=== PATIENT | male | born 1990 | race Caucasian/White ===

== ENCOUNTER 2023-04-19 06:30 | Day surgery (SDC) | payer BC, SELFPAY ==
[2023-04-19] VITALS (7 sets, daily range): BP systolic 115–168; BP diastolic 61–88; BMI 22.5
== END 2023-04-19 15:18 | disposition home or self-care (01) ==
LOC: SDS 06:30
PROVIDERS: ATTENDING PHYSICIAN Specialist
DX: L72.0 Epidermal cyst (principal); L98.9 Disorder of the skin and subcutaneous tissue, unspecified
CPT/HCPCS: 11421; 88304; 88305

== ENCOUNTER 2023-08-19 15:48 | Emergency (ER) | payer BC, SELFPAY ==
[2023-08-19 15:50] VITALS: BP 170/95
--- NOTE | 2023-08-19 16:40 | ED.GENMED ---
History of Present Illness
General
Chief Complaint: Headache
Source: patient
Time Seen by Provider: 08/19/23 16:14
Travel History
Have you had any contact with someone who has COVID-19?: No
Do you have any symptoms of coronavirus? Fever > 100 degrees, chills, cough, shortness of breath, sore throat, loss of taste or smell, muscle aches, or headache?: No
History of Present Illness
History of Present Illness:
33-year-old male presenting to the emergency department to be evaluated for head pressure that has been ongoing for 1 month however today started develop a right-sided headache that developed into a transient loss of his peripheral vision for about
1 hour and this resolved spontaneously and then with a worsening pounding headache. Patient states he has had migraines in the past with similar visual auras but states today seem to be a little bit more severe which is why he decided to come to
the ER for further evaluation. Patient did not take any medications for his headache prior to arrival. Denies any fevers, nausea, vomiting, neck pain or stiffness or any other concerns. 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
the brain from an incidental finding on scan done in 2007. No other concerns.
Past History
Past History
ED Past Medical History: Asthma
ED Past Surgical History: Urological
Social History
Tobacco: Non-smoker
Alcohol: Occasional
Drug: None
Personal: Single
Living: with family
Employment: Employed
Review of Systems
Review of Systems
All Other Systems: ROS reviewed and negative except as documented in HPI and ROS
Phy Exam
Physical Exam
Physical Exam:
GENERAL: Alert , in no apparent distress
EYE: conjunctiva clear, pupils 4mm b/l, EOMI
NECK: Supple, no significant adenopathy.
ENT: o/p clr, mmm.
CARDIAC: Regular rate and rhythm
LUNGS: Clear breath sounds bilaterally, no acute respiratory distress, no wheezes/rales/rhonchi
NEUROLOGICAL: Alert and oriented, Ambulates with steady gait, no dysmetria, no dysarthria or aphasia, no ataxia, 5/5 strength to b/l UE and LE. sensation grossly intact to light touch
SKIN: Warm and dry, skin intact.
MUSCULOSKELETAL: well perfused.
PSYCH: Normal and appropriate interaction.
Scores
Heart Failure Risk
Heart Failure Risk Score: Not Applicable
Heart Score for Chest Pain Patients
STEMI patient?: Not applicable
Withdrawal Assessment of Alcohol
Withdrawal Assessment Completed?: Not applicable
Course
Orders/Labs/Results
Orders:
Orders
08/19/23 15:59
CT Head W/o Iv Contrast Urgent
Comment:
Reason For Exam: visual changes
Vital Signs
Initial and Last Documented VS:
Initial Vital Signs
Temp Pulse Resp BP Pulse Ox
98.7 F 75 16 170/95 99
08/19/23 15:50 08/19/23 15:50 08/19/23 15:50 08/19/23 15:50 08/19/23 15:50
Last Documented Vital Signs
Temp Pulse Resp BP Pulse Ox
98.7 F 85 18 163/83 100
08/19/23 15:50 08/19/23 18:00 08/19/23 18:00 08/19/23 18:00 08/19/23 18:00
MDM/Problems Addressed
Differential Diagnosis Includes:
Atypical migraine, TIA thought to be less likely given patient's age and lack of risk factors as well as the duration that symptoms lasted, malignancy
MDM/Problems Addressed:
33-year-old male presenting emergency department for evaluation of headache with transient visual disturbance that lasted for around 1 hour. Patient still notes a posterior headache but is declining anything for the symptoms. No focal neurologic
deficits. Patient is otherwise well-appearing. CT of the head ordered. Reassessment following.
*Pulse Oximetry
Patient hypoxic: no
*Critical Care Note
Total Time (30-74mins, 75-104mins- exclusive of procedures): Not Applicable
Patient Management
Escalation/DeEscalation of care consider admission/obs:
CT shows already known arachnoid cyst. There is no other evidence for intracranial pathology. Patient continues to decline any medications for headache. At this time he is stable for discharge home. Encourage close follow-up with primary care
provider however I did discuss that if patient continues with migraines he may benefit from follow-up with neurology as an outpatient. Aware precautions to the emergency department.
ED Attending Note
-
Portions of this chart may have been created with voice recognition software.� Occasional wrong word or��sound alike� substitutions may have occurred due to the inherent limitations of voice recognition software.
Discharge Plan
Departure
Patient Disposition: Home (Routine Discharge)
Date of Disposition: 08/19/23
Time of Disposition: 18:56
Patient with high blood pressure during this ER visit?: Yes
Discharge Problem:
Migraine with aura
Instructions: Migraines (DC)
Prescriptions:
No Action
No Current Medications
0
Referrals:
Mario Powers MD [Family Provider] -
Interventions
Interventions:
*Risk Screen - Suicide Last Done: 08/19/23 17:00
*General Assessment Last Done: 08/19/23 17:00
*Neglect/Abuse Screening Last Done: 08/19/23 17:00
ED- Fall Risk Assessment Last Done: 08/19/23 17:00
*ED COVID-19 Vaccine History Last Done: 08/19/23 15:50
*Nursing Disposition Last Done: 08/19/23 19:13
ED- Neurological Assessment Last Done: 08/19/23 17:00
Discharge Date and Time
Discharge Date/Time: 08/19/23 19:16
Print Language: GHANAIAN
[2023-08-19 18:00] VITALS: BP 163/83
== END 2023-08-19 19:16 | disposition home or self-care (01) ==
LOC: EMR 15:48
PROVIDERS: EMERGENCY PHYSICIAN Emergency Medicine; FAMILY PHYSICIAN Internal Medicine
DX: G43.109 Migraine with aura, not intractable, without status migrainosus (principal); R03.0 Elevated blood-pressure reading, without diagnosis of hypertension; G93.0 Cerebral cysts; J45.909 Unspecified asthma, uncomplicated
CPT/HCPCS: 99284; 70450

== ENCOUNTER → 2023-09-21 08:33 | Outpatient (REF) | payer BC, SELFPAY ==
[2023-09-21 09:41] LABS: % Basophils 0.3 % (0-2); % Eosinophils 4.3 % (0-6); % Immature Granulocytes 0.2 % (0-0.5); % Lymphocytes 33.5 % (20.5-51.1); % Monocytes 7.4 % (1.7-9.3); % Neutrophils 54.3 % (42.2-75.2); Absolute Eosinophils 0.3 10^3/uL (0-0.7); Absolute Lymphocytes 1.9 10^3/uL (1.2-3.4); Absolute Monocytes 0.4 10^3/uL (0.1-0.6); Absolute Neutrophils 3.1 10^3/uL (1.4-6.5); Hematocrit 41.9 % (39.0-52.0); Hemoglobin 14.4 g/dL (13.0-18.0); Mean Corp Hgb Conc. 34.4 g/dL (33.0-37.0); Mean Corpuscular Hgb 30.6 pg (27.0-31.0); Mean Corpuscular Volume 89.1 fL (80.0-94.0); Mean Platelet Volume 9.7 fL (7.4-10.4); Nucleated Red Blood Cells % 0 % (-); Platelet Count 240 10^3/uL (130-400); White Blood Cell Count 5.8 10^3/uL (4.8-10.8)
[2023-09-21 10:13] LABS: ALT (SGPT) 20 U/L (0-50); AST (SGOT) 28 U/L (17-59); Albumin 4.5 g/dl (3.5-5.0); Alkaline Phosphatase 69 U/L (38-126); Blood Urea Nitrogen 17 mg/dl (9-20); Calcium 9.6 mg/dl (8.4-10.2); Carbon Dioxide 25 mmol/L (22-30); Chloride 104 mmol/L (98-107); Glucose 91 mg/dl (70-99); HDL Cholesterol 61 mg/dl; LDL Cholesterol, Calculated 126 mg/dl; Potassium 4.2 mmol/L (3.5-5.1); Sodium 139 mmol/L (135-145); Total Bilirubin 1.3 mg/dl (0.2-1.3); Total Cholesterol 199 mg/dl (50-199); Total Protein 6.4 g/dl (6.3-8.2); Triglyceride 64 mg/dl (10-149); Very Low Density Lipoprotein 12 mg/dl (0-30); eGFR > 60.00
== END ==
LOC: REG 08:33
PROVIDERS: ATTENDING PHYSICIAN Internal Medicine
DX: G43.109 Migraine with aura, not intractable, without status migrainosus (principal); Z13.220 Encounter for screening for lipoid disorders
CPT/HCPCS: 36415; 80053; 80061; 85025

== ENCOUNTER → 2023-11-02 10:41 | Outpatient (REF) | payer BC, SELFPAY ==
[2023-11-02 12:01] LABS: % Basophils 0.5 % (0-2); % Eosinophils 1.8 % (0-6); % Immature Granulocytes 0.2 % (0-0.5); % Lymphocytes 29.1 % (20.5-51.1); % Monocytes 8.1 % (1.7-9.3); % Neutrophils 60.3 % (42.2-75.2); Absolute Eosinophils 0.1 10^3/uL (0-0.7); Absolute Lymphocytes 1.7 10^3/uL (1.2-3.4); Absolute Monocytes 0.5 10^3/uL (0.1-0.6); Absolute Neutrophils 3.5 10^3/uL (1.4-6.5); Hematocrit 41.6 % (39.0-52.0); Hemoglobin 14.6 g/dL (13.0-18.0); Mean Corp Hgb Conc. 35.1 g/dL (33.0-37.0); Mean Corpuscular Hgb 30.5 pg (27.0-31.0); Mean Corpuscular Volume 86.8 fL (80.0-94.0); Mean Platelet Volume 9.8 fL (7.4-10.4); Nucleated Red Blood Cells % 0 % (-); Platelet Count 319 10^3/uL (130-400); Red Blood Cell Count 4.79 10^6/uL (4.70-6.10); Red Cell Dist. Width 12.3 % (11.5-14.5); White Blood Cell Count 5.7 10^3/uL (4.8-10.8)
[2023-11-02 12:39] LABS: ALT (SGPT) 25 U/L (0-50); AST (SGOT) 32 U/L (17-59); Albumin 4.4 g/dl (3.5-5.0); Alkaline Phosphatase 69 U/L (38-126); Blood Urea Nitrogen 12 mg/dl (9-20); Carbon Dioxide 29 mmol/L (22-30); Chloride 101 mmol/L (98-107); Glucose 91 mg/dl (70-99); Phosphorus 2.7 mg/dl (2.5-4.5); Potassium 4.7 mmol/L (3.5-5.1); Sodium 138 mmol/L (135-145); Total Bilirubin 0.8 mg/dl (0.2-1.3); Total Protein 6.2 g/dl (6.3-8.2); eGFR > 60.00
[2023-11-03 09:37] LABS: Intact PTH 21.9 pg/ml (13.6-85.8)
== END ==
LOC: REG 10:41
PROVIDERS: ATTENDING PHYSICIAN Student in an Organized Health Care Education/Training Program; FAMILY PHYSICIAN Internal Medicine
DX: E83.51 Hypocalcemia (principal); R11.2 Nausea with vomiting, unspecified; R19.7 Diarrhea, unspecified; R50.9 Fever, unspecified
CPT/HCPCS: 36415; 80053; 83970; 84100; 85025

== ENCOUNTER → 2024-04-15 14:47 | Outpatient (REF) | payer BC, SELFPAY | LOC: RAD 14:47 | PROVIDERS: ATTENDING PHYSICIAN Specialist | DX: N50.819 Testicular pain, unspecified (principal) | CPT/HCPCS: 76870; 93976 ==

== ENCOUNTER 2024-11-05 06:14 | Day surgery (SDC) | payer BC, SELFPAY ==
[2024-11-05] VITALS (8 sets, daily range): BP systolic 137–170; BP diastolic 69–90; BMI 22.5
[2024-11-05] MEDS: TYLENOL 1000 MG PO (10:44)
[2024-11-05] MEDS: NORMOSOL-R/PLASMALYTE-A 1000 IV (10:45)
== END 2024-11-05 15:25 | disposition home or self-care (01) ==
LOC: SDS 06:14
PROVIDERS: ATTENDING PHYSICIAN Surgery
DX: K40.90 Unilateral inguinal hernia, without obstruction or gangrene, not specified as recurrent (principal)
CPT/HCPCS: 49650; C1781

== ENCOUNTER 2024-12-23 09:21 | Emergency (ER) | payer BC, SELFPAY ==
[2024-12-23 09:26] VITALS: BP 152/86
[2024-12-23 10:15] LABS: Hematocrit 42.9 % (39.0-52.0); Hemoglobin 14.1 g/dL (13.0-18.0); Mean Corp Hgb Conc. 32.9 g/dL (33.0-37.0); Mean Corpuscular Volume 89.9 fL (80.0-94.0); Nucleated Red Blood Cells % 0 % (-); Platelet Count 291 10^3/uL (130-400); Red Cell Dist. Width 12.3 % (11.5-14.5)
[2024-12-23 10:26] LABS: ALT (SGPT) 18 U/L (0-50); AST (SGOT) 22 U/L (17-59); Albumin 4.6 g/dl (3.5-5.0); Alkaline Phosphatase 77 U/L (38-126); Blood Urea Nitrogen 14 mg/dl (9-20); Calcium 9.6 mg/dl (8.4-10.2); Carbon Dioxide 23 mmol/L (22-30); Chloride 106 mmol/L (98-107); Glucose 133 mg/dl (70-99); Potassium 4.0 mmol/L (3.5-5.1); Sodium 135 mmol/L (135-145); Total Protein 6.7 g/dl (6.3-8.2); eGFR > 60.00
[2024-12-23 10:37] LABS: Troponin I 0.015 ng/ml
[2024-12-23 10:40] VITALS: BP 153/73
[2024-12-23 11:00] VITALS: BP 159/82
--- NOTE | 2024-12-23 11:16 | ED.GENMED ---
History of Present Illness
General
Chief Complaint: Chest Pain
Time Seen by Provider: 12/23/24 10:39
History of Present Illness
History of Present Illness:
see MDM
Past History
Past History
ED Past Medical History: Asthma
ED Past Surgical History: Urological
Social History
Tobacco: Non-smoker
Alcohol: Occasional
Drug: None
Personal: Single
Living: with family
Employment: Employed
Phy Exam
Physical Exam
Physical Exam:
see MDM
Scores
Heart Score for Chest Pain Patients
STEMI patient?: No
History: Slightly or Non-Suspicious
ECG: Nonspecific Repolarization
Age: </= 45 years
Risk Factors: No Risk Factors
Troponin: </= Normal Limit
Heart Score for Chest Pain Patients: 1
Heart Score Risk: 2.5% MACE over next 6 weeks
Course
Orders/Labs/Results
Orders:
Orders
12/23/24 09:24
EKG [Electrocardiogram (*1)] Stat
Reason for Study: Chest Pain
EKG- Treatment ONCE
12/23/24 09:32
Cardiac Monitoring- Treatment ONCE
IV Insert/Care/Rem.- Treatment PRN
Pulse Ox/spot Check [RESP] Urgent
Quantity: 1
Special Instructions: ON ROOM AIR
12/23/24 09:36
Complete Blood Count/With Diff Urgent
Comprehensive Metabolic Panel Urgent
Troponin I Urgent
12/23/24 11:10
CT Chest PE Study Urgent
Comment:
Reason For Exam: chest pain, recent surgery
EKG- Treatment ONCE
12/23/24 11:11
Aspirin Chewable [Low Strength Aspirin] 81 mg PO NOW STA
12/23/24 13:46
Troponin I Urgent
12/23/24 13:55
EKG [Electrocardiogram (*1)] Urgent
Reason for Study: Chest Pain
EKG- Treatment ONCE
12/23/24 14:00
Electrocardiogram (*1) Urgent
Reason for Study: Chest Pain
Abnormal Lab Results
12/23/24
09:36
MCHC 32.9 L g/dL
(33.0-37.0)
Glucose 133 H mg/dl
(70-99)
12/23/24 09:36
12/23/24 09:36
Vital Signs
Initial and Last Documented VS:
Initial Vital Signs
Temp Pulse Resp BP Pulse Ox
37.1 C 80 18 152/86 99
12/23/24 09:26 12/23/24 09:26 12/23/24 09:26 12/23/24 09:26 12/23/24 09:26
Last Documented Vital Signs
Temp Pulse Resp BP Pulse Ox
37.1 C 66 13 151/81 99
12/23/24 09:26 12/23/24 14:45 12/23/24 14:45 12/23/24 14:00 12/23/24 11:17
MDM/Problems Addressed
Differential Diagnosis Includes:
see MDM
MDM/Problems Addressed:
Note:
CHIEF COMPLAINT(S)
Chest pain beginning at work.
HISTORY OF PRESENT ILLNESS
The patient is a 34-year-old male with no medical problems who presented with chest pain that began while at work around 8:00 AM. The pain was described as a sharp sensation located centrally in the chest, present only while sitting and alleviating
upon standing. it became pretty intense and he took motrin at 830 am.
he decided he had to leave work and drive tot [facility].
whlie driving, the patient experienced dizziness and saw urgent care where he stopped to be seen, but says he felt better so he decided to come here on his own.
since arrival he has had chest pain intermittently
The patient rates the pain as a 5 on a scale of 0 to 10. He denies exacerbation of pain with deep breaths.
The patient had a recent inguinal hernia surgery on November 05 and reports that he was sedentary postoperatively for about two weeks, gradually resuming physical activity like cycling.
Of note, the patient has a family history of cerebral aneurysm involving the patients father, who underwent surgery but two years thereafter. He denies a personal or family history of myocardial infarctions, blood clots, and reports no
tobacco or cocaine use, and drinks alcohol socially.
REVIEW OF SYSTEMS
- Cardiovascular: Recurrent episodic chest pain, described as sharp, centrally located, with no radiation to the back, shoulder, or jaw.
- Neurological: Reports dizziness during the commute to the facility.
- Pulmonary: Denies exacerbation of pain with respiration.
PHYSICAL EXAM
- Nursing notes reviewed and vital signs reviewed.
GENERAL: Alert , in no apparent distress
EYE: pupils equal and reactive
NECK: Supple
ENT: o/p clr, mmm.
CARDIAC: Regular rate and rhythm .
No chest wall tenderness
LUNGS: Clear breath sounds bilaterally, no acute respiratory distress, no wheezes/rales/rhonchi
ABDOMEN: Soft, without focal tenderness, no r/g, no cvat, normal bowel sounds
NEUROLOGICAL: Alert and oriented, no focal neuro deficits
SKIN: Warm and dry, skin intact.
MUSCULOSKELETAL: No edema, well perfused. neg tara's sign
PSYCH: Normal and appropriate interaction.
- Musculoskeletal: No pain reported upon examination of the collarbone.
PLAN
A computed tomography (CT) scan is recommended to assess for pulmonary embolism, myocarditis, or pericarditis, given the recent surgical history and current symptomatology. Intravenous access will be established for the administration of contrast
and subsequent laboratory draws, specifically to recheck troponin levels. A baby dose of aspirin may be administered for its cardioprotective benefits while conducting the cardiac workup.
DIFFERENTIAL DIAGNOSIS
The Differential Diagnosis includes, in no particular order and is not limited to:
1. Acute coronary syndrome
2. Pulmonary embolism
3. Pericarditis
4. Myocarditis
5. Musculoskeletal chest pain
6. Gastroesophageal reflux disease
7. Anxiety-related chest pain
8. Costochondritis
9. Aortic dissection
10. Pneumothorax
12/23/24 - 13:34
The patients echocardiogram result was normal, showing no fluid around the heart, blood clots, or aneurysms. Initial cardiac enzyme (troponin) was detectable at 0.015, which is below the positive threshold of 0.04 but above the truly undetectable
level (<0.012). The plan involves checking another troponin and conducting an ECG around 2 PM to ensure no rising trend. If the troponin level remains stable or declines, discharge is anticipated. The patient reports no significant pain and feels
fine. Given surgical history, a blood clot was ruled out, ensuring no embolic events contributed. [employer] follow-up as an outpatient may consider further assessments like a stress test and echocardiogram, depending on additional enzyme trends
and overall clinical context.
Spoke with the ED attending and reviewed EKG is, he agreed with the plan of second troponin
12/23/2024 1514 PM
Second EKG does show a notching in the ST segment on V2, and slightly downsloping V1 ST segment and I reviewed it with Dr. Bazan on-call for [facility] who thought the EKGs looked okay and not consistent with any Brugada pattern. Patient's second
troponin downtrended to less than 0.012.
Patient is pain-free. He looks well, will have him follow-up with cardiology, return precautions given.
*Pulse Oximetry
SaO2: 99
Oxygen Mode of Delivery: Room air
Patient hypoxic: no (99)
*Critical Care Note
Total Time (30-74mins, 75-104mins- exclusive of procedures): Not Applicable
ED Attending Note
-
Portions of this chart may have been created with voice recognition software.� Occasional wrong word or��sound alike� substitutions may have occurred due to the inherent limitations of voice recognition software.
Discharge Plan
Departure
Patient Disposition: Home (Routine Discharge)
Date of Disposition: 12/23/24
Time of Disposition: 15:04
Patient with high blood pressure during this ER visit?: No
Condition: Fair
Covid-19: Not Applicable
Discharge Problem:
Chest pain
Instructions: Chest Pain DCA Follow Up
Prescriptions:
No Action
acetaminophen [acetaminophen] 325 mg tablet
650 mg PO Q4HPRN PRN (Reason: mild pain) Qty: 1 0RF
ibuprofen 200 mg tablet
400 - 600 mg PO Q6HPRN PRN (Reason: moderate pain) Qty: 1 0RF
Referrals:
Mario Powers MD [Family Provider, Internal Medicine] - Follow up in 5-7 days
Activity Restrictions/Additional Instructions:
Were not sure the cause of your chest pain today. You did have a very minimally positive troponin enzyme but then it downtrended to normal. Your CAT scan showed no signs of a blood clot. There was no fluid around your heart
Follow-up with a bricklayer helper as an outpatient, you may need further testing as needed. Until then try to avoid strenuous exercise, take Tylenol or ibuprofen for pain. Return for worsening pain, shortness of breath, passing out, severe pain etc.
Interventions
Interventions:
*Risk Screen - Suicide Last Done: 12/23/24 09:26
*General Assessment Last Done: 12/23/24 09:26
*Neglect/Abuse Screening Last Done: 12/23/24 09:26
*ED- Fall Risk Assessment Last Done: 12/23/24 09:26
*ED COVID-19 Vaccine History Last Done: 12/23/24 09:26
*ED Influenza Vaccine History Last Done: 12/23/24 09:26
ED- Cardiac Assessment Last Done: 12/23/24 10:43
Discharge Date and Time
Print Language: MALTESE
[2024-12-23] MEDS: LOW STRENGTH ASPIRIN 81 MG PO (11:17)
[2024-12-23 11:21] VITALS: BMI 23.2
[2024-12-23 12:00] VITALS: BP 149/84
[2024-12-23 13:03] VITALS: BP 141/73
[2024-12-23 14:00] VITALS: BP 151/81
[2024-12-23 14:34] LABS: Troponin I < 0.012 ng/ml
== END 2024-12-23 15:21 | disposition home or self-care (01) ==
LOC: EMR 09:21
PROVIDERS: Physician Assistant; EMERGENCY PHYSICIAN Emergency Medicine; FAMILY PHYSICIAN Internal Medicine
DX: R07.9 Chest pain, unspecified (principal); J45.909 Unspecified asthma, uncomplicated
CPT/HCPCS: 99284; 71275; 80053; 84484; 85025; 93005; Q9967

== ENCOUNTER 2025-01-16 16:15 | Emergency (ER) | payer BC, SELFPAY ==
[2025-01-16 16:21] VITALS: BP 169/83
[2025-01-16 16:41] LABS: Hematocrit 39.4 % (39.0-52.0); Hemoglobin 13.9 g/dL (13.0-18.0); Mean Corp Hgb Conc. 35.3 g/dL (33.0-37.0); Mean Corpuscular Volume 87.8 fL (80.0-94.0); Nucleated Red Blood Cells % 0 % (-); Platelet Count 238 10^3/uL (130-400); Red Cell Dist. Width 12.2 % (11.5-14.5)
[2025-01-16 17:03] LABS: ALT (SGPT) 18 U/L (0-50); AST (SGOT) 21 U/L (17-59); Albumin 4.5 g/dl (3.5-5.0); Alkaline Phosphatase 68 U/L (38-126); Blood Urea Nitrogen 14 mg/dl (9-20); Calcium 9.8 mg/dl (8.4-10.2); Carbon Dioxide 27 mmol/L (22-30); Chloride 103 mmol/L (98-107); Glucose 108 mg/dl (70-99); Potassium 3.7 mmol/L (3.5-5.1); Sodium 136 mmol/L (135-145); Total Protein 6.3 g/dl (6.3-8.2); eGFR > 60.00
[2025-01-16 17:12] LABS: Troponin I 0.024 ng/ml
== END 2025-01-16 20:04 ==
LOC: EMR 16:15
PROVIDERS: Student in an Organized Health Care Education/Training Program
DX: Z53.21 Procedure and treatment not carried out due to patient leaving prior to being seen by health care provider (principal)
CPT/HCPCS: 80053; 84484; 85025; 93005

== ENCOUNTER → 2025-01-28 07:13 | Outpatient (REF) | payer BC, SELFPAY | LOC: RCS 07:13 | PROVIDERS: ATTENDING PHYSICIAN Physician Assistant Medical; FAMILY PHYSICIAN Internal Medicine | DX: I10 Essential (primary) hypertension (principal); R07.9 Chest pain, unspecified; I34.0 Nonrheumatic mitral (valve) insufficiency | CPT/HCPCS: 93306 ==

== ENCOUNTER → 2025-01-30 07:40 | Outpatient (REF) | payer BC, SELFPAY | LOC: RCS 07:40 | PROVIDERS: ATTENDING PHYSICIAN Physician Assistant Medical; FAMILY PHYSICIAN Internal Medicine | DX: R07.9 Chest pain, unspecified (principal); I10 Essential (primary) hypertension | CPT/HCPCS: 93017 ==

== ENCOUNTER → 2025-03-03 09:40 | Outpatient (REF) | payer BC, SELFPAY ==
[2025-03-03 11:05] LABS: Blood Urea Nitrogen 14 mg/dl (9-20); Calcium 9.9 mg/dl (8.4-10.2); Carbon Dioxide 29 mmol/L (22-30); Chloride 103 mmol/L (98-107); Glucose 111 mg/dl (70-99); Potassium 4.4 mmol/L (3.5-5.1); Sodium 137 mmol/L (135-145); eGFR > 60.00
== END ==
LOC: REG 09:40
PROVIDERS: ATTENDING PHYSICIAN Physician Assistant Medical; FAMILY PHYSICIAN Internal Medicine
DX: I10 Essential (primary) hypertension (principal)
CPT/HCPCS: 36415; 80048